=== PATIENT | female | born 1995 | race Hispanic/Latino ===

== ENCOUNTER 2021-02-04 03:16 | Observation (INO) | payer OTHER ==
[2021-02-04] MEDS ORDERED: Acetaminophen 325 MG TAB PO PRN (03:22)
[2021-02-04] MEDS ORDERED: Ondansetron PF 4 MG/2 ML Vial IVP PRN (03:22)
[2021-02-04] MEDS ORDERED: Misoprostol 200 MCG TAB VAG SCH (03:30)
[2021-02-04] MEDS ORDERED: Ibuprofen 200 MG TAB PO PRN (03:35)
[2021-02-04 03:49] VITALS: BMI 46.9
[2021-02-04] MEDS: Lactated Ringer's 1,000 ML IV SCH ×2 (04:49→12:23)
[2021-02-04] MEDS: Docusate 100 MG CAP PO SCH ×2 (08:13→21:28)
[2021-02-04 17:11] LABS: SARS-CoV-2 PCR by NAA Not Detected (NotDetected)
[2021-02-05] MEDS ORDERED: Methylergonovine 0.2 MG/ML VIAL ONE (07:32)
[2021-02-05] MEDS ORDERED: PROPOFOL 40 ML ONE (07:34)
[2021-02-05] MEDS ORDERED: Fentanyl 100 MCG/2 ML VIAL ONE ×2 (07:34→09:46)
[2021-02-05] MEDS: Lactated Ringer's 1,000 ML IV SCH ×2 (08:07→11:35)
[2021-02-05] MEDS ORDERED: cefTRIAXone\\ROCEPHIN 500 MG in Sodium Chloride 0.9% 0 ML IVPB SCH (08:45)
[2021-02-05] MEDS ORDERED: Lidocaine 1% PF 5 ML VIAL ONE (08:48)
[2021-02-05] MEDS ORDERED: Midazolam HCl 2 mg/2 ml Vial ONE (08:49)
[2021-02-05] MEDS ORDERED: cefTRIAXone\\ROCEPHIN 500 MG in Sodium Chloride 0.9% 100 ML IVPB SCH (09:00)
[2021-02-05] MEDS ORDERED: cefTRIAXone\\ROCEPHIN 1 GM VIAL ONE (09:03)
[2021-02-05] MEDS ORDERED: Ondansetron PF 4 MG/2 ML Vial ONE (09:07)
[2021-02-05] MEDS ORDERED: Carboprost 250 MCG/ML AMP ONE (09:18)
[2021-02-05] MEDS ORDERED: Promethazine HCl 25 MG/ML VIAL SLOW IVP PRN (09:30)
[2021-02-05] MEDS ORDERED: Ondansetron HCl/PF 4 MG/2 ML Vial IVP PRN (09:30)
[2021-02-05] MEDS ORDERED: Promethazine HCl 25 MG/ML VIAL IM PRN (09:30)
[2021-02-05] MEDS ORDERED: Ibuprofen 400 MG TAB PO PRN (09:34)
[2021-02-05] MEDS ORDERED: Acetaminophen/Codeine 30-300mg Tablet PO PRN (09:34)
[2021-02-05] MEDS ORDERED: Lactated Ringer's 1,000 ML IV SCH (09:45)
[2021-02-05 10:24] VITALS: TEMP 98.6
[2021-02-05 11:26] VITALS: BP 111/69
[2021-02-05] MEDS: Docusate 100 MG CAP PO SCH (11:34)
== END 2021-02-05 12:55 | disposition home or self-care (01) ==
LOC: CSHPP 03:16
PROVIDERS: ADMIT Obstetrics & Gynecology; ATTEND Obstetrics & Gynecology
PROC: 10D17ZZ Extraction of Products of Conception, Retained, Via Natural or Artificial Opening (ICD-10-PCS; principal; 2021-02-05)
DX: O03.1 Delayed or excessive hemorrhage following incomplete spontaneous abortion (principal); Z20.822 Contact with and (suspected) exposure to COVID-19
CPT/HCPCS: 87635; 88305; G0378; J0696; J2210; J2250; J2405; J2704; J3010; J3490; U0003; U0005

== ENCOUNTER 2023-12-27 19:57 | Emergency (ER) | payer SELFPAY ==
[2023-12-27] MEDS ORDERED: Ondansetron PF 4 MG/2 ML Vial ONE ×2 (21:09→22:06)
[2023-12-27] MEDS ORDERED: Acetaminophen 500 MG TAB ONE (21:09)
[2023-12-27 21:21] LABS: #Eosinphils 0.1 10x3/uL (0.0-0.5); #Monocytes 0.5 10x3/uL (0.0-1.1); %Basophils 0.3 % (0.0-2.0); %Eosinophils 0.8 % (0.0-6.0); %Lymphocytes 14.3 % (18.0-47.0); %Monocytes 4.4 % (0.0-10.0); %Neutrophils 79.8 % (40.0-75.0); Hematocrit 34.5 % (34.9-44.5); Hemoglobin 11.2 g/dL (12.0-15.5); Mean Corpuscular HGB CONC 32.5 g/dL (32.0-36.0); Mean Corpuscular Hemoglobin 24.2 pg (27.0-33.0); Mean Corpuscular Volume 74.5 fl (81.6-98.3); Mean Platelet Volume 9.1 fl (7.4-10.4); Platelet Count 313 10x3/uL (150-450); RBC Distribution Width 17.2 % (11.5-14.5); Red Blood Cell (RBC) Count 4.63 10x6/uL (3.90-5.03); White Blood Cell (WBC) Count 11.3 10x3/uL (3.5-10.5)
[2023-12-27 21:31] LABS: ALT (SGPT) 15 U/L (8-55); AST (SGOT) 13 U/L (5-34); Albumin 3.5 g/dL (3.5-5.0); Alkaline Phosphatase 75 U/L (40-110); Anion Gap 12 mmol/L (10-20); BUN (Urea Nitrogen) 5 mg/dL (7.0-18.7); Bilirubin, Total 0.2 mg/dL (0.2-1.2); Calc. Creatinine Clearance 0 mL/min (70-130); Calcium 8.8 mg/dL (7.8-10.44); Carbon Dioxide 21 mmol/L (22-29); Chloride 106 mmol/L (98-107); Estimated GFR 125; Globulin 3.5 g/dL (2.4-3.5); Glucose 86 mg/dL (70-105); Potassium 3.7 mmol/L (3.5-5.1); Sodium 135 mmol/L (136-145)
[2023-12-27 22:03] LABS: Microcytosis SLIGHT = 6-15 cells (100X) (0-5/hpf); Platelet Adequacy Comment Appears Adequate
[2023-12-27] MEDS ORDERED: Metoclopramide HCl 10 MG (2 mL) VIAL ONE (22:06)
[2023-12-27 22:14] LABS: Bilirubin Neg (Negative); Blood, Urine Negative (Negative); Clarity Clear (Clear); Glucose, Urine (Dipstick) Normal (Negative); Ketone, Urine 150 mg/dL (Negative); Leukocyte 500 (Negative); Nitrite Positive (Negative); Protein, Urine (Dipstick) 30 mg/dl (Neg-Trace)
[2023-12-27 22:29] LABS: Bacteria/HPF 2+ HPF (None Seen); CAUTI Indications for Culture Pregnancy; RBC/HPF 0-3 HPF (0-3); Squamous Epithelial 0-3 HPF (0-3)
[2023-12-27 22:31] LABS: Urine Culture Reflex Yes Yes
[2023-12-27] MEDS ORDERED: cefTRIAXone (ROCEPHIN) 2 GM VIAL ONE (23:05)
== END 2023-12-27 23:46 | disposition home or self-care (01) ==
LOC: CSHERS 19:57
DX: O23.02 Infections of kidney in pregnancy, second trimester (principal); O23.42 Unspecified infection of urinary tract in pregnancy, second trimester; N39.0 Urinary tract infection, site not specified; Z3A.17 17 weeks gestation of pregnancy
CPT/HCPCS: 76815; 80053; 81001; 85025; 87086; 96361; 96365; 96367; 96375; 96376; J0696; J2405; J2765

== ENCOUNTER 2024-04-22 18:22 | Observation (INO) | payer MEDICAID, OTHER ==
[2024-04-22 18:54] VITALS: BMI 51.2
[2024-04-22] MEDS ORDERED: hydrALAZINE 20 MG/ML VIAL SLOW IVP PRN ×2 (19:10→21:11)
[2024-04-22 19:43] LABS: Fetal Membranes Rupture No Membranes Rupture (No Rupture)
[2024-04-22] MEDS ORDERED: Ondansetron PF 4 MG/2 ML Vial IVP PRN (21:11)
[2024-04-22] MEDS: Lactated Ringer's 1,000 ML IV SCH (21:40)
[2024-04-22] MEDS: metroNIDAZOLE 500 MG TAB PO SCH (21:56)
[2024-04-23 08:28] VITALS: BP 112/63; TEMP 98.6
[2024-04-23] MEDS ORDERED: Clotrimazole 2% 3 Day Vag Cr 22.2 GM TUBE VAG SCH (22:00)
== END 2024-04-23 10:10 | disposition home health service, planned readmission (86) ==
LOC: CSHLD/OP 18:22 → CSHANTE 21:31
PROVIDERS: ADMIT Family Medicine; ATTEND Family Medicine
DX: O41.03X0 Oligohydramnios, third trimester, not applicable or unspecified (principal); O23.593 Infection of other part of genital tract in pregnancy, third trimester; B96.89 Other specified bacterial agents as the cause of diseases classified elsewhere; B37.31 Acute candidiasis of vulva and vagina; O09.33 Supervision of pregnancy with insufficient antenatal care, third trimester; O99.891 Other specified diseases and conditions complicating pregnancy; R73.03 Prediabetes; O99.013 Anemia complicating pregnancy, third trimester; O99.343 Other mental disorders complicating pregnancy, third trimester; O41.8X30 Other specified disorders of amniotic fluid and membranes, third trimester, not applicable or unspecified; F32.A Depression, unspecified; Z3A.35 35 weeks gestation of pregnancy
CPT/HCPCS: 59025; 76819; 84112; 87480; 87510; 87660; 99285; G0378; J7120

== ENCOUNTER 2024-05-11 15:20 | Day surgery (SDC) | payer OTHER | END 2024-05-11 20:14 | disposition home or self-care (01) | LOC: CSHLD/OP 15:20 | PROVIDERS: ATTEND Student in an Organized Health Care Education/Training Program | DX: O99.891 Other specified diseases and conditions complicating pregnancy (principal); R51.9 Headache, unspecified; R10.11 Right upper quadrant pain; O36.8130 Decreased fetal movements, third trimester, not applicable or unspecified; O23.593 Infection of other part of genital tract in pregnancy, third trimester; N89.8 Other specified noninflammatory disorders of vagina; Z3A.37 37 weeks gestation of pregnancy | CPT/HCPCS: 76705; 76819; 80053; 81001; 82570; 84156; 85025; 87086; 87480; 87510; 87660 ==